=== PATIENT | male | born 1990 | race Caucasian/White ===

== ENCOUNTER 2020-03-25 04:28 | Emergency (ER) | payer SELFPAY ==
[~2020-03-25] VITALS: Ht 180.3 cm; Wt 82.3 kg
[2020-03-25 05:14] VITALS: BP 120/75
== END 2020-03-25 05:19 | disposition home or self-care (01) ==
LOC: ED 05:00
DX: K08.89 Other specified disorders of teeth and supporting structures (principal)
CPT/HCPCS: 99283